=== PATIENT | male | born 1940 | race Caucasian/White ===

== ENCOUNTER → 2019-12-26 09:51 | Outpatient (BNVA) | payer MEDICARE, SELFPAY | PROVIDERS: PCP Family Medicine; Referring Provider Family Medicine; Visit Provider Internal Medicine Cardiovascular Disease | DX: I49.3 Ventricular premature depolarization (principal); R06.02 Shortness of breath; R00.2 Palpitations; I10 Essential (primary) hypertension; Z79.899 Other long term (current) drug therapy | CPT/HCPCS: 93005; 99212 ==

== ENCOUNTER → 2020-01-17 09:01 | Outpatient (REF) | payer MEDICARE, SELFPAY ==
--- NOTE | 2020-01-17 09:00 | ECG_ITS ---
Hook-up date: 2020-01-17 10:49:00 Duration: 24:47:00 Test Indications: PVC Medications: 349532 QRS complexes 7920 Ventricular ectopics which represent 7 % of total QRS comp. 1457 Supraventricular ectopics which represent 1 % of total QRS comp. * Paced QRS complexs which represent % of total QRS comp. VENTRICULAR ECTOPY 7674 Isolated 97 Bigeminal Cycles 115 Couplets 5 Runs 16 Beats in Runs 4 Beats LONGEST at 100 BPM at 11:04:54 2020-01-17 3 Beats FASTEST at 141 BPM at 14:52:43 2020-01-17 SUPRAVENTRICULAR ECTOPY 1342 Isolated 33 Couplets 12 Runs 49 Beats in Runs 9 Beats LONGEST at 139 BPM at 06:23:56 2020-01-18 9 Beats FASTEST at 139 BPM at 06:23:56 2020-01-18 HEART RATES 63 MIN at 02:14:09 2020-01-18 71 AVG 120 MAX at 11:23:39 2020-01-17 LONGEST RR 1.2000 secs at 05:18:18 2020-01-18 S-T LEVELS Channel 1 - 128 mm at 10:49:00 2020-01-17 - 128 mm at 10:49:00 2020-01-17 Channel 2 - 128 mm at 10:49:00 2020-01-17 - 128 mm at 10:49:00 2020-01-17 Channel 3 - 128 mm at 03:00:81 -- - 128 mm at 03:00:81 Basic rhythm Normal sinus rhythm No long pause or profound bradycardia Frequent Premature ventricular complexes 3-4 beat salvos of NSVT with fastest at 141 bpm Frequent Premature atrial complexes No sustained Atrial fibrillation Patient reported event correlated with PAC Referred By: Leandro Zurita Overread By: LEANDRO ZURITA MD
--- NOTE | 2020-01-17 09:04 | CA_ITS ---
Transthoracic Echocardiogram Patient (Last, First, Middle): Sohan Friedman, Gender: Male Date of : 1940 Age: 79 Procedure Date: 01/17/2020 Procedure Type: Transthoracic Echocardiogram Location: OP Height: 172.72 cm Weight: 79.83 kg BSA: 1.94 m2 Heart Rate: bpm BP: 120 / 68 mmHg Oil Exploration Engineer: SAMANTHA Referring MD: Leandro Zurita MD Symptoms: I10 - Essential (primary) hypertension Study Quality: Good ECG Rhythm: Sinus Conclusions: - The left ventricular systolic function is normal. The visually estimated ejection fraction is between 65-70%. - No obvious valvular pathology seen on this study. Findings Left Ventricle Normal left ventricular cavity size. There is normal left ventricular wall thickness. The left ventricular systolic function is normal. The visually estimated ejection fraction is between 65-70%. There is no evidence of regional wall motion abnormalities. Diastolic function is normal for age. Right Ventricle Normal right ventricular cavity size and systolic function. Atria Both atria are normal in size. Aortic Valve There is a normal trileaflet aortic valve. There is no aortic valve stenosis. There is no aortic valve regurgitation. Mitral Valve The mitral valve appears normal. There is trace mitral valve regurgitation. There is no mitral valve stenosis. Pulmonic Valve The pulmonic valve was not well visualized. Tricuspid Valve Normal tricuspid valve structure. There is trace tricuspid valve regurgitation. The pulmonary artery systolic pressure is normal. Great Vessels The aortic annulus, sinuses of valsalva, and asc aorta are normal in size. Venous The inferior vena cava is normal in size and collapses greater than 50% with inspiration. Pericardium/Pleural There is no evidence of pericardial effusion. Prior Study Comparison No prior study available for comparison. Recommendations, Care & Conclusions No obvious valvular pathology seen on this study. Measurements 2D Linear Measurements IVSd: 1.26 0.6-0.9/0.6-1.0 cm LVIDd: 4.46 3.9-5.3/4.2-5.9 cm LVIDd Index: 2.30 2.4-3.2/2.2-3.1 cm/m2 LVIDs: 2.90 2.0-3.6 cm LVPWd: 0.98 0.7-1.1 cm Ao Root: 3.10 2.1-3.5 cm LA Diam: 4.10 2.7-3.8/3.0-4.0 cm LAIDs Index: 2.11 1.5-2.3 cm/m2 LV Mass: 220.39 67-162/88-224 g LV Mass Index: 113.60 43-95/49-115 g/m2 LVOT Diam: 2.30 3.0+(-)1.3 cm 2D Systolic Function EF 4C: 73.00 >55% EF 2C: 55.60 >55% EF BiP: 67.20 >55% Mitral Valve MV Pk E: 0.50 MV PK A: 0.76 MV Decel Time: 158.00 E/A: 0.70 E'Lateral: 9.28 E'Medial: 6.09 E/E' Med: 8.30 E/E' Lat: 5.40 PHT: 46.00 MVA PHT: 4.78 Decel Deuel: 3.18 Aortic Valve AoV Pk Dinesh: 1.22 AoV Pk Grad: 6.00 LVOT LVOT Pk Dinesh: 0.89 LVOT Mn Dinesh: 0.57 LVOT VTI: 0.20 LVOT Pk Grad: 3.00 LVOT Mn Grad: 2.00 LVOT Diam: 2.30 LVOT Area: 4.15 Diastolic Function MV Pk E: 0.50 MV Pk A: 0.76 E/A: 0.70 E'Medial: 6.09 E/E' Med: 8.30 E' Laterial: 9.28 E/E' Lat: 5.40 Tricuspid Valve TR Pk Dinesh: 2.43 TR Pk Grad: 24.00 RA Press: 3.00 RVSP: 27.00 Great Vessels Aorta Ao Root-2D: 3.10 2.0-3.7 cm Ao Asc: 3.30 2.1-3.4 cm Updated in Other Vendor System with Status of Final Jesus Elkins MD electronically signed on 01/19/2020 11:23:37 AM with status of Final
--- NOTE | 2020-01-17 10:57 | NM_ITS ---
Exercise Myocardial perfusion study Indication: Shortness of breath evaluate for myocardial ischemia Technique: The patient was brought in for an exercise perfusion study on 01/17/2020. Patient performed exercise as per Hernando protocol and was injected 30 mCi of sestamibi was given intravenously one target HR was achieved. Images were obtained using the SPECT gamma camera interlaced with the gating device. Images were obtained in supine position. Resting perfusion study was performed on 01/18/2020. Patient was administered 30 mCi of sestamibi intravenously at rest. Images were then obtained in supine position. Images obtained with and without CT attenuation. Total DLP 78 mGy-cm. Images were processed with the software and compared side to side in short axis, horizontal long axis and vertical long axis views. Findings: The stress perfusion study showed non attenuated images show mildly to moderately reduced uptake in the inferior wall of the LV myocardium. Remainder of the LV myocardium is normally perfused. Attenuation corrected images show normal uptake of radiotracer in all segments of LV myocardium.. The gated study shows normal LV systolic function with calculated LVEF of greater than 70 %. LV cavity is normal in size. The gated study shows normal systolic wall thickening and contraction of all segments. There is no transient ischemic dilation. Resting study shows non attenuated images show mildly reduced uptake in the inferior wall of the LV myocardium. Remainder of the LV myocardium normally attenuation corrected images show normal uptake of radiotracer myocardium except for small area of inferoapical wall.. Gating at rest reveals normal systolic wall motion with ejection fraction at 62%. The findings are consistent with normal myocardial perfusion. NM/NM cardiolite stress test Impression: 1. Normal myocardial perfusion 2. Gated LVEF is 62% 3. Transient ischemic dilatation not present Stress EKG is negative for ischemia
--- NOTE | 2020-01-17 11:05 | CA_ITS ---
Acquisition Time: 2020-01-17 10:17:58 Total Exercise Time: 00:05:02 Test Indications: Dyspnea Medications: LISINOPRIL DILTIAZEM CETRIZINE Protocol: ROSANA Max HR: 131 BPM 91% of Pred: 143 BPM Max BP: 200/056 mmHG Max Work Load: 7.0 METS Exercise stress nuclear using Rosana protocol, total of 5 min 2 sec. Tolerated well, denies any anginal sx. EKG with PVC's and PAC's. No ischemic changes seen during exercise or in rcovery. Nuclear images to follow. Hypertensive response to exercise. Pt took his cardizem now. Test reviewed with Dr. Elkins. Referred By: Leandro Zurita Overread By: Eleanor Powers
== END ==
LOC: HO.CARD 09:01
PROVIDERS: PCP Family Medicine; Visit Provider Internal Medicine Cardiovascular Disease
DX: R06.02 Shortness of breath (principal); I49.3 Ventricular premature depolarization; I10 Essential (primary) hypertension; G47.33 Obstructive sleep apnea (adult) (pediatric)
CPT/HCPCS: 78452; 93017; 93225; 93226; 93306; A9500

== ENCOUNTER → 2020-02-06 09:49 | Outpatient (BNVA) | payer MEDICARE, SELFPAY | PROVIDERS: PCP Family Medicine; Visit Provider Internal Medicine Cardiovascular Disease | DX: I49.3 Ventricular premature depolarization (principal); R00.2 Palpitations; I10 Essential (primary) hypertension; Z79.899 Other long term (current) drug therapy | CPT/HCPCS: 99212 ==

== ENCOUNTER 2020-03-05 09:20 | Outpatient (REF) | payer MEDICARE, SELFPAY ==
[2020-03-05 10:42] LABS: Prostate Specific Antigen < 0.05 ng/mL (<0.05-4.0)
--- NOTE | 2020-03-06 07:34 | ECG_ITS ---
Hook-up date: 2020-03-05 10:58:00 Duration: 47:24:00 Test Indications: VENT. PREMATURE DEPOLARIZATION Medications: 86421 QRS complexes 195 Ventricular ectopics which represent 2 % of total QRS comp. 433 Supraventricular ectopics which represent <1 % of total QRS comp. * Paced QRS complexs which represent % of total QRS comp. VENTRICULAR ECTOPY 1931 Isolated 48 Bigeminal Cycles 11 Couplets 0 Runs 0 Beats in Runs * Beats LONGEST at * BPM at :: -- * Beats FASTEST at * BPM at :: -- SUPRAVENTRICULAR ECTOPY 291 Isolated 46 Couplets 14 Runs 50 Beats in Runs 6 Beats LONGEST at 107 BPM at 05:14:03 2020-03-06 3 Beats FASTEST at 126 BPM at 05:47:39 2020-03-06 HEART RATES 50 MIN at 13:51:26 2020-03-05 58 AVG 104 MAX at 08:39:20 2020-03-06 LONGEST RR 1.2640 secs at 14:20:00 2020-03-05 S-T LEVELS Channel 1 - 128 mm at 10:58:00 2020-03-05 - 128 mm at 10:58:00 2020-03-05 Channel 2 - 128 mm at 10:58:00 2020-03-05 - 128 mm at 10:58:00 2020-03-05 Channel 3 - 128 mm at 03:01:71 -- - 128 mm at 03:01:71 Underlying rhythm is sinus; Average ventricular rate 58/min; range 50-104/min; Occasional ventricular ectopy (3%); mostly isolated; occasional couplets, bigeminal cycles; no runs; 2 different morphology; Rare supraventricular ectopy (<1%); few brief runs; Patient did not report any symptoms in the diary Referred By: Leandro Zurita Overread By: JESSE ZEPEDA
== END 2020-03-05 09:21 | disposition home or self-care (01) ==
LOC: HO.LAB 09:20
PROVIDERS: PCP Family Medicine; Visit Provider Urology
DX: C61 Malignant neoplasm of prostate (principal); Z12.5 Encounter for screening for malignant neoplasm of prostate; I49.3 Ventricular premature depolarization
CPT/HCPCS: 36415; 84153; 93226

== ENCOUNTER → 2020-03-19 09:30 | Outpatient (BNVA) | payer MEDICARE, SELFPAY | PROVIDERS: PCP Family Medicine; Referring Provider Family Medicine; Visit Provider Urology | DX: C61 Malignant neoplasm of prostate (principal) | CPT/HCPCS: Q3014 ==

== ENCOUNTER 2020-03-20 14:28 | Outpatient (REF) | payer SELFPAY ==
[2020-03-20 16:55] LABS: Cholesterol 157 mg/dL
== END 2020-03-20 14:29 | disposition home or self-care (01) ==
LOC: HO.LNC 14:28
PROVIDERS: Visit Provider Pathology Anatomic Pathology & Clinical Pathology
DX: Z13.89 Encounter for screening for other disorder (principal)
CPT/HCPCS: 36415; 82465

== ENCOUNTER → 2020-05-06 10:03 | Outpatient (BNVA) | payer MEDICARE, SELFPAY | PROVIDERS: PCP Family Medicine; Visit Provider Internal Medicine Cardiovascular Disease | DX: I49.3 Ventricular premature depolarization (principal); I10 Essential (primary) hypertension | CPT/HCPCS: 99212 ==

== ENCOUNTER 2021-03-04 13:41 | Outpatient (REF) | payer MEDICARE, SELFPAY ==
[2021-03-04 17:04] LABS: Prostate Specific Antigen < 0.05 ng/mL (<0.05-4.0)
== END 2021-03-04 13:42 | disposition home or self-care (01) ==
LOC: HO.HMGCLDS 13:41
PROVIDERS: PCP Family Medicine; Visit Provider Urology
DX: Z12.5 Encounter for screening for malignant neoplasm of prostate (principal); C61 Malignant neoplasm of prostate; N13.8 Other obstructive and reflux uropathy; N40.1 Benign prostatic hyperplasia with lower urinary tract symptoms
CPT/HCPCS: 36415; 84153

== ENCOUNTER → 2021-03-20 08:58 | Outpatient (BNVA) | payer MEDICARE, SELFPAY | PROVIDERS: PCP Family Medicine; Visit Provider Urology | DX: C61 Malignant neoplasm of prostate (principal) | CPT/HCPCS: Q3014 ==

== ENCOUNTER → 2021-05-12 12:20 | Outpatient (BNVA) | payer MEDICARE, SELFPAY | PROVIDERS: PCP Family Medicine; Referring Provider Family Medicine; Visit Provider Internal Medicine Cardiovascular Disease | DX: I49.3 Ventricular premature depolarization (principal); I10 Essential (primary) hypertension | CPT/HCPCS: 93005; 99212 ==

== ENCOUNTER → 2021-11-12 13:51 | Outpatient (BNVA) | payer MEDICARE, SELFPAY | PROVIDERS: PCP Family Medicine; Referring Provider Family Medicine; Visit Provider Internal Medicine Cardiovascular Disease | DX: I10 Essential (primary) hypertension (principal); I49.3 Ventricular premature depolarization; Z79.899 Other long term (current) drug therapy | CPT/HCPCS: 99212 ==

== ENCOUNTER 2022-03-13 10:11 | Outpatient (REF) | payer MEDICARE, SELFPAY ==
[2022-03-13 12:14] LABS: Prostate Specific Antigen < 0.10 ng/mL (<0.05-4.0)
== END 2022-03-13 10:12 | disposition home or self-care (01) ==
LOC: HO.HMGCLDS 10:11
PROVIDERS: PCP Family Medicine; Visit Provider Urology
DX: Z12.5 Encounter for screening for malignant neoplasm of prostate (principal); C61 Malignant neoplasm of prostate
CPT/HCPCS: 36415; 84153

== ENCOUNTER → 2022-03-20 09:25 | Outpatient (BNVA) | payer MEDICARE, SELFPAY | PROVIDERS: PCP Family Medicine; Visit Provider Urology | DX: C61 Malignant neoplasm of prostate (principal); I49.3 Ventricular premature depolarization; I10 Essential (primary) hypertension; G47.33 Obstructive sleep apnea (adult) (pediatric); Z90.79 Acquired absence of other genital organ(s) | CPT/HCPCS: 99212 ==

== ENCOUNTER → 2022-05-18 12:58 | Outpatient (BNVA) | payer MEDICARE, SELFPAY | PROVIDERS: PCP Family Medicine; Visit Provider Internal Medicine Cardiovascular Disease | DX: I49.3 Ventricular premature depolarization (principal); I10 Essential (primary) hypertension | CPT/HCPCS: 93005; 99212 ==

== ENCOUNTER 2023-04-09 14:43 | Outpatient (REF) | payer MEDICARE, SELFPAY ==
[2023-04-09 17:05] LABS: Prostate Specific Antigen < 0.10 ng/mL (<0.05-4.0)
== END 2023-04-09 14:44 | disposition home or self-care (01) ==
LOC: HO.HMGCLDS 14:43
PROVIDERS: PCP Family Medicine; Visit Provider Urology
DX: Z12.5 Encounter for screening for malignant neoplasm of prostate (principal); C61 Malignant neoplasm of prostate
CPT/HCPCS: 36415; 84153

== ENCOUNTER 2023-04-21 10:04 | Outpatient (AMB) | payer MEDICARE, SELFPAY ==
--- NOTE | 2023-04-21 10:13 | A.OFFVIS_ITS ---
Intake Intake Visit Reasons: 1Y PSA(set)Confirmed Intake Note: Patient presents today for a follow-up on PSA Meds- None Allergies to Antibiotic- No Known Allergies Blood Thinner- None Inspector Radar And Electronics Required: No Accompanied by: Self / Same As Patient Allergies atenolol [ATENOLOL] Allergy (Intermediate, Verified 04/21/23 10:20) OUT OF BODY EXPERIENCE feathers Allergy (Unknown, Uncoded 04/21/23 10:20) Unknown HPI HPI Comments History of Present Illness Details Sohan ARRIOLA is a very pleasant male. He is a patient of Dr Mcnair. He is seen for the following urologic conditions. - prostate cancer Doing well Maintaining fitness No recurrence Encouraged Kegel exercises Discussed change in labs status for PSA management - reporting of lab work depends on metho dology used Recently finished book regarding development of COVID vaccine Prostate cancer: Favorable intermediate 2009 initial therapy robotic prostatectomy Prostate cancer was diagnosed [address] Wade. Diagnosis was reached by needle biopsy, for elevated PSA. The Eliud grade is 3+4 = 7, at surgery. TNM Classification of Malignant Tumours (TNM) 2010 T2b, N0, M0. The D'Mary Kate (NCCN) risk category is Intermediate Risk (PSA 10-20, Gl 7, T2). Initial therapy included Primary treatment, Prostatectomy (RRP/Robotic) Additional treatment, Observation Recent labs included a PSA (prostate-specific antigen) Nondetectable PSA since surgery 09/23 < 0.1, 09/24 < 0.1, 02/25 < 0.1, 02/26 < 0.1, 02/27 < 0.1 - 02/28 <0.1, 03/01 <0.1, 03/02 <0.1, 05/01 <0.1 Associated conditions erectile dysfunction Yes Erectile MARY Score 15 hematuria No hot flashes No incontinence Yes Stress incontinence occasional Therapeutic plan: Continue with surveillance [facility] Medical History Prostate cancer PERI (obstructive sleep apnea) PVCs (premature ventricular contractions) HTN (hypertension) Surgical History Hx of toe surgery Hx of vasectomy Hx of prostatectomy Hx of shoulder surgery Family History Father CVD (cardiovascular disease) Mother No problems noted. Review of Systems Const Denies chills and Denies fever(s) Card Reports no additional complaints and Denies syncope Resp Denies cough GI Denies abdominal pain and Denies heartburn Reports as per HPI and Denies change in libido Neuro Denies syncope Psych Denies change in libido Endo Denies change in libido Physical Exam Const General: cooperative, healthy appearing, comfortable and no acute distress Orientation/consciousness: patient oriented x3 HEENT Face and sinus: Yes normal facial exam Mouth: moist mucous membranes Neck Neck: Yes normal visual inspection, Yes full ROM and Yes trachea midline Chest Chest palpation & inspection: normal inspection of the chest Resp Effort & Inspection: normal respiratory effort, able to speak in complete sentences and no respiratory distress GI Inspection: Yes normal to inspection Back/Spine/Pelvis Cervical Spine: normal cervical lordosis Thoracic/Lumbar Spine: thoracic and lumbar spine normal to inspection Skin General skin exam: no rashes or lesions noted Neuro General: patient oriented x3, gait normal, tone normal and moves all extremities Extrem General: Yes normal to inspection and Yes capillary refill normal Assessment & Plan Assessment & Plan (1) Prostate cancer: Code(s): C61 - Malignant neoplasm of prostate Plan Twelve month follow-up PSA Orders: Orders Prostate Specific Antigen 364 Days C61 - Malignant neoplasm of prostate Patient Instructions: Imaging studies, laboratory and physical exam results were discussed and reviewed in detail. No major barriers to patient understanding were identified. An opportunity to ask questions regarding the treatment plan was provided. All questions were answered. The patient expressed understanding and agreement with the above treatment plan. The patient is aware they should contact our office by phone for worsening of their current condition or the appearance of new urologic symptoms. Compliance is encouraged with any medications and followup testing that is ordered. It is a privilege to participate in the urologic care of your patient. If you have any questions or concerns regarding treatment for the above conditions, or other urologic issues, please do not hesitate to contact me. The office telephone contact is [phone]. This note is constructed using voice recognition software. While every effort h as been made to ensure accuracy freight rate clerk errors may have been included. Yours sincerely, Dr Umberto Wade MD, [facility] - Urology Providers of Expert, Compassionate Care for the Genitourinary System Coding Level of Care Code Est Pt Level 4 (57364) Diagnoses Prostate cancer C61
== END 2023-04-21 11:08 | disposition home or self-care (01) ==
PROVIDERS: Visit Provider Urology
DX: C61 Malignant neoplasm of prostate (principal)
CPT/HCPCS: 99213

== ENCOUNTER → 2023-04-21 10:04 | Outpatient (BNVA) | payer MEDICARE, SELFPAY | PROVIDERS: Visit Provider Urology | DX: Z85.46 Personal history of malignant neoplasm of prostate (principal) | CPT/HCPCS: 99212 ==

== ENCOUNTER 2023-05-25 12:36 | Outpatient (AMB) | payer MEDICARE, SELFPAY ==
--- NOTE | 2023-05-25 12:45 | MHC.OFFVIS ---
Intake Vital Signs 05/25/23 12:46 Height 5 ft 10 in Weight 187 lb 6.287 oz BMI 26.9 BP 116/62 Blood Pressure Location Lt brachial Position Sitting Pulse 61 Intake Visit Reasons: 1 yr fu Intake Note: 1 year follow-up with ekg feeling ok ? cough at night and lisinopril Software Engineer Sales Required: No Allergies atenolol [ATENOLOL] Allergy (Intermediate, Verified 04/21/23 10:20) OUT OF BODY EXPERIENCE feathers Allergy (Unknown, Uncoded 04/21/23 10:20) Unknown Medication List - Last Reconciled 05/25/23 by Leandro Zurita MD azelastine 2 sprays intranasal DAILY diltiazem HCl CD 300 mg PO DAILY escitalopram oxalate 5 mg PO DAILY fexofenadine 180 mg PO DAILY lisinopril 40 mg PO DAILY metoprolol succinate ER 50 mg PO DAILY multivitamin 1 tab PO DAILY HPI HPI Comments History of Present Illness Details Sohan comes for follow-up. He has been doing well from cardiac perspective. He says symptoms of palpitation have dissipated he does not feel them anymore. He remains very active and has no exertional symptoms of chest pain or shortness of breath. Denies any orthopnea, PND, leg edema. No lightheadedness, syncope. He said he does have a little itchy throat at nighttime when he goes to sleep which resolves after he takes a cough drop. Reviewed last year's lab and his triglycerides were greater than 500. No current therapy to modify his lipids. [facility] Medical History Prostate cancer PERI (obstructive sleep apnea) PVCs (premature ventricular contractions) HTN (hypertension) Surgical History Hx of toe surgery Hx of vasectomy Hx of prostatectomy Hx of shoulder surgery Family History Father CVD (cardiovascular disease) Mother No problems noted. Review of Systems Const Denies chills, Denies fatigue, Denies fever(s), Denies frequent falls, Denies weakness, Denies weight gain and Denies weight loss ENT Denies dizziness Card Denies chest pain, Denies leg edema, Denies lightheadedness, Denies palpitations, Denies dyspnea, Denies dyspnea on exertion, Denies orthopnea and Denies other (loss of consciousness) Resp Denies cough, Denies dyspnea and Denies dyspnea on exertion GI Denies hematochezia and Denies change in stool character Musc Denies abnormal gait, Denies muscle weakness, Denies numbness, Denies radiating pain into limb and Denies tingling Neuro Denies abnormal gait, Denies dizziness, Denies frequent falls, Denies numbness, Denies tingling and Denies weakness Endo Denies fatigue and Denies palpitations Physical Exam Vital Signs: Last Vital Signs Pulse 61 05/25/23 12:46 BP 116/62 05/25/23 12:46 BMI result Body Mass Index 26.9 Const General: cooperative, comfortable, no acute distress, alert and awake Nutritional Appearance: average body habitus Orientation/consciousness: patient oriented x3 Limitations: no limitations Neck Neck: Yes trachea midline, Yes supple and Yes no JVD Resp Effort & Inspection: normal respiratory effort Auscultation: clear to auscultation bilaterally Cardio Jugular venous distension: no JVD Palpation: normal PMI Rate: regular rate Rhythm: regular rhythm Heart sounds: S1 normal heart sound present and S2 normal heart sound present GI Auscultation: normal bowel sounds Skin General skin exam: no rashes or lesions noted Neuro General: patient oriented x3 and no focal motor deficits Extrem General: Yes no clubbing, cyanosis or edema Psych Appearance: grossly normal Office Procedures EKG Details: EKG shows normal sinus rhythm with PVCs with left axis deviation [id number], Complete Assessment & Plan Assessment & Plan (1) PVCs (premature ventricular contractions): Code(s): I49.3 - Ventricular premature depolarization Plan: Frequent PVCs in the past with much improved symptoms of dual therapy with metoprolol as well as diltiazem. Continue the same. Avoidance of stimulants was discussed. Stress mitigation strategies were discussed encouraged to continue to participate in physical activity as tolerated. (2) HTN (hypertension): Code(s): I10 - Essential (primary) hypertension Plan: Hypertension which is currently well optimized on triple therapy. Continue the same. Continue treatment of sleep apnea necessary. Target goal blood pressure less than 130/84. Low-salt diet was discussed advised to monitor blood pressure at home maintain a log. Continue maintain heart healthy lifestyle. Noted to have significant hypertriglyceridemia. He has follow-up lipid panel in near future. If his triglycerides are still significantly elevated should be treated either with Lovaza or Vascepa. Follow up in the clinic in 1 year's time after an echocardiogram. Thank you for allowing me to partake in his care Coding Level of Care Code Est Pt Level 4 (92624) Diagnoses PVCs (premature ventricular contractions) I49.3 HTN (hypertension) I10 CPT Codes EKG - CPT: 67522-[id number], Complete ([id number])
[2023-05-25 12:46] VITALS: BP 116/62; PULSE 61; BMI 26.9
== END 2023-05-25 13:09 | disposition home or self-care (01) ==
PROVIDERS: Visit Provider Internal Medicine Cardiovascular Disease
DX: I49.3 Ventricular premature depolarization (principal); I10 Essential (primary) hypertension
CPT/HCPCS: 93010; 99214

== ENCOUNTER → 2023-05-25 12:36 | Outpatient (BNVA) | payer MEDICARE, SELFPAY | PROVIDERS: Visit Provider Internal Medicine Cardiovascular Disease | DX: I49.3 Ventricular premature depolarization (principal); I10 Essential (primary) hypertension | CPT/HCPCS: 93005; 99212 ==

== ENCOUNTER → 2024-05-10 08:40 | Outpatient (REF) | payer MEDICARE, SELFPAY ==
--- NOTE | 2024-05-10 08:56 | CA_ITS ---
Transthoracic Echocardiogram Patient (Last, First, Middle): Sohan Friedman, Gender: Male Date of : 1940 Age: 84 Procedure Date: 05/10/2024 Procedure Type: Transthoracic Echocardiogram Location: OP Height: 177.8 cm Weight: 82.56 kg BSA: 2.01 m2 Heart Rate: bpm BP: 120 / 60 mmHg Push Bench Operator Helper: STUART Referring MD: Leandro Zurita MD Symptoms: I49.3 - Ventricular premature depolarization Study Quality: Adequate ECG Rhythm: Sinus Conclusions: - The left ventricular systolic function is normal. The calculated ejection fraction is 57% by biplane method. - There is moderately increased left ventricular wall thickness (more prominent in septum). - No obvious valvular pathology seen on this study. Findings Left Ventricle Normal left ventricular cavity size. There is moderately increased left ventricular wall thickness. The left ventricular systolic function is normal. The calculated ejection fraction is 57% by biplane method. There is no evidence of regional wall motion abnormalities. Diastolic function is normal for age. Right Ventricle Normal right ventricular cavity size and systolic function. Atria Both atria are normal in size. Aortic Valve There is a normal trileaflet aortic valve. There is no aortic valve stenosis. There is no aortic valve regurgitation. Mitral Valve The mitral valve appears normal. There is no mitral valve regurgitation. There is no mitral valve stenosis. Pulmonic Valve The pulmonic valve is likely normal. Tricuspid Valve There is mild tricuspid valve regurgitation. There is no evidence of pulmonary hypertension. Great Vessels The asc aorta is normal in size. Venous The inferior vena cava is normal in size and collapses less than 50% with inspiration. Pericardium/Pleural There is no evidence of pericardial effusion. Prior Study Comparison Changes noted compared to prior study dated: 01/17/2020. LVH noted. Recommendations, Care & Conclusions No obvious valvular pathology seen on this study. Measurements 2D Linear Measurements IVSd: 1.52 0.6-0.9/0.6-1.0 cm LVIDd: 4.80 3.9-5.3/4.2-5.9 cm LVIDd Index: 2.39 2.4-3.2/2.2-3.1 cm/m2 LVIDs: 2.64 2.0-3.6 cm LVPWd: 1.36 0.7-1.1 cm Ao Root: 3.40 2.1-3.5 cm LA Diam: 5.40 2.7-3.8/3.0-4.0 cm LAIDs Index: 2.69 1.5-2.3 cm/m2 LV Mass: 356.09 67-162/88-224 g LV Mass Index: 177.16 43-95/49-115 g/m2 LVOT Diam: 2.30 3.0+(-)1.3 cm 2D Systolic Function EF 4C: 55.60 >55% EF 2C: 59.80 >55% EF BiP: 57.40 >55% Mitral Valve MV Pk E: 0.48 MV PK A: 0.89 MV Decel Time: 352.00 E/A: 0.50 E'Lateral: 8.16 E'Medial: 5.77 E/E' Med: 8.40 E/E' Lat: 5.90 PHT: 103.00 MVA PHT: 2.14 Decel Cowley: 1.38 Aortic Valve AoV Pk Dinesh: 1.10 AoV Mn Dinesh: 0.70 AoV VTI: 0.25 AoV Pk Grad: 5.00 Aov Mn Grad: 2.00 RICHARD Cont.VTI: 3.55 LVOT LVOT Pk Dinesh: 0.85 LVOT Mn Dinesh: 0.51 LVOT VTI: 0.21 LVOT Pk Grad: 3.00 LVOT Mn Grad: 1.00 LVOT Diam: 2.30 LVOT Area: 4.15 Diastolic Function MV Pk E: 0.48 MV Pk A: 0.89 E/A: 0.50 E'Medial: 5.77 E/E' Med: 8.40 E' Laterial: 8.16 E/E' Lat: 5.90 Right Ventricle TAPSE (mm): 27.00 TVS' Dinesh: 15.00 Tricuspid Valve TR Pk Dinesh: 2.60 TR Pk Grad: 27.00 RA Press: 3.00 RVSP: 30.00 Great Vessels Aorta Ao Root-2D: 3.40 2.0-3.7 cm Ao Asc: 3.50 2.1-3.4 cm Pulmonary Valve PV Pk Dinesh: 0.86 Peak PV Grad: 3.00 Updated in Other Vendor System with Status of Final Jesus Elkins MD electronically signed on 05/12/2024 2:40:58 PM with status of Final
[2024-05-10 10:18] LABS: Prostate Specific Antigen < 0.10 ng/mL (<0.05-4.0)
== END ==
LOC: HO.CARD 08:40
PROVIDERS: Absent Provider Urology; PCP Family Medicine; Visit Provider Internal Medicine Cardiovascular Disease
DX: I49.3 Ventricular premature depolarization (principal); C61 Malignant neoplasm of prostate; Z12.5 Encounter for screening for malignant neoplasm of prostate
CPT/HCPCS: 36415; 84153; 93306

== ENCOUNTER → 2024-05-10 08:56 | Outpatient (BNV) | payer MEDICARE, SELFPAY | PROVIDERS: Absent Provider Urology; PCP Family Medicine; Visit Provider Internal Medicine | DX: I36.1 Nonrheumatic tricuspid (valve) insufficiency (principal) | CPT/HCPCS: 93306 ==

== ENCOUNTER 2024-05-16 12:22 | Outpatient (AMB) | payer MEDICARE, SELFPAY ==
--- NOTE | 2024-05-16 12:30 | MHC.OFFVIS ---
Vital Signs 05/16/24 12:31 Height 5 ft 10 in Weight 189 lb 9.561 oz BMI 27.2 BP 122/74 Blood Pressure Location Lt brachial Position Sitting Pulse 62 Intake Visit Reasons: 1 yr s/p echo Intake Note: 1 year follow-up with after echo feeling good Data Integrity Consultant Required: No Allergies atenolol [ATENOLOL] Allergy (Intermediate, Verified 04/21/23 10:20) OUT OF BODY EXPERIENCE feathers Allergy (Unknown, Uncoded 04/21/23 10:20) Unknown Medication List - Last Reconciled 05/16/24 by Leandro Zurita MD azelastine 2 sprays intranasal DAILY diltiazem HCl CD 300 mg PO DAILY escitalopram oxalate 5 mg PO DAILY fexofenadine 180 mg PO DAILY metoprolol succinate ER 50 mg PO DAILY multivitamin 1 tab PO DAILY valsartan 320 mg PO DAILY HPI Comments Details: Sohan comes for follow-up. He has been doing very well from cardiac perspective. Denies any cardiac symptoms. Denies any worsening shortness of breath, orthopnea. Denies any exertional chest pain. He said he has not had any on medications and has had no prolonged irregular heartbeat. Recent echocardiogram however shows increased wall thickness which is unusual. He has had well controlled blood pressure for some time. He was also treating sleep apnea. [facility] Medical History Prostate cancer PERI (obstructive sleep apnea) PVCs (premature ventricular contractions) HTN (hypertension) Surgical History Hx of toe surgery Hx of vasectomy Hx of prostatectomy Hx of shoulder surgery Family History Father CVD (cardiovascular disease) Mother No problems noted. Review of Systems Const Denies chills, Denies fatigue, Denies fever(s), Denies frequent falls, Denies weakness, Denies weight gain and Denies weight loss ENT Denies dizziness Card Denies chest pain, Denies leg edema, Denies lightheadedness, Denies palpitations, Denies dyspnea, Denies dyspnea on exertion, Denies orthopnea and Denies other (loss of consciousness) Resp Denies cough, Denies dyspnea and Denies dyspnea on exertion GI Denies hematochezia and Denies change in stool character Musc Denies abnormal gait, Denies muscle weakness, Denies numbness, Denies radiating pain into limb and Denies tingling Neuro Denies abnormal gait, Denies dizziness, Denies frequent falls, Denies numbness, Denies tingling and Denies weakness Endo Denies fatigue and Denies palpitations Physical Exam Vital Signs: Last Vital Signs Pulse 62 05/16/24 12:31 BP 122/74 05/16/24 12:31 BMI result Body Mass Index 27.2 Const General: cooperative, comfortable, no acute distress, alert and awake Nutritional Appearance: average body habitus Orientation/consciousness: patient oriented x3 Limitations: no limitations Neck Neck: Yes trachea midline, Yes supple and Yes no JVD Resp Effort & Inspection: normal respiratory effort Auscultation: clear to auscultation bilaterally Cardio Jugular venous distension: no JVD Palpation: normal PMI Rate: regular rate Rhythm: regular rhythm Heart sounds: S1 normal heart sound present and S2 normal heart sound present GI Auscultation: normal bowel sounds Skin General skin exam: no rashes or lesions noted Neuro General: patient oriented x3 and no focal motor deficits Extrem General: Yes no clubbing, cyanosis or edema Psych Appearance: grossly normal Office Procedures EKG Details: EKG shows normal sinus rhythm with 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 [id number], Complete Assessment & Plan Assessment & Plan (1) LVH (left ventricular hypertrophy): Code(s): I51.7 - Cardiomegaly Category: Medical Plan: Patient was recent echocardiogram suggestive of increased wall thickness of unclear etiology. Most common etiologies usually hypertension although his blood pressures been well controlled. Would suggest a cardiac MRI to evaluate for infiltrative disorder such as amyloidosis , sarcoidosis etc.. Hypertrophic cardiomyopathy is less likely. He was no current symptoms related to it. Potential development of heart failure syndrome was discussed. Continue aggressive blood pressure control. (2) HTN (hypertension): Code(s): I10 - Essential (primary) hypertension Category: Medical Plan: Hypertension which is currently well optimized advised to monitor blood pressure at home maintain a log. Goal blood pressure less than 130/84. He says blood pressure is generally been well controlled. At this point time will continue current therapy which has helped him significantly. He was encouraged to maintain activity level as tolerated. (3) PVCs (premature ventricular contractions): Code(s): I49.3 - Ventricular premature depolarization Category: Medical Plan: PVCs which are currently suppressed and without any significant symptoms at this point time. Will suggest him to continue current therapy. Avoidance of stimulants was discussed. Stress mitigation strategies were discussed Will follow up in the clinic in 1 year's time, sooner p.r.n.. Thank you for allowing me to partake in his care Orders: Orders MR cardiac morph fnct w/wo con 1 Week I51.7 - Cardiomegaly Coding Level of Care Code Est Pt Level 4 (69027) Complex EM visit Add On G2211 Diagnoses LVH (left ventricular hypertrophy) I51.7 HTN (hypertension) I10 PVCs (premature ventricular contractions) I49.3 CPT Codes EKG - CPT: 30243-[id number], Complete ([id number])
[2024-05-16 12:31] VITALS: BP 122/74; PULSE 62; BMI 27.2
== END 2024-05-16 13:15 | disposition home or self-care (01) ==
LOC: HO.HCS 12:23
PROVIDERS: PCP Family Medicine; Visit Provider Internal Medicine Cardiovascular Disease
DX: I51.7 Cardiomegaly (principal); I10 Essential (primary) hypertension; I49.3 Ventricular premature depolarization
CPT/HCPCS: 93010; 99214; G2211

== ENCOUNTER → 2024-05-16 12:22 | Outpatient (BNVA) | payer MEDICARE, SELFPAY | PROVIDERS: PCP Family Medicine; Visit Provider Internal Medicine Cardiovascular Disease | DX: I51.7 Cardiomegaly (principal); I10 Essential (primary) hypertension; I49.3 Ventricular premature depolarization; I45.2 Bifascicular block; R94.31 Abnormal electrocardiogram [ECG] [EKG]; C61 Malignant neoplasm of prostate | CPT/HCPCS: 93005; 99212 ==

== ENCOUNTER 2024-05-16 14:21 | Outpatient (AMB) | payer MEDICARE, SELFPAY ==
--- NOTE | 2024-05-16 14:54 | A.OFFVIS_ITS ---
Intake Visit Reasons: 1y/PSA(psa?) Intake Note: Patient presents today for a 1Y follow-up on PSA Meds- None Allergies to Antibiotic- No Known Allergies Blood Thinner- None Network Engineer Required: No Accompanied by: Self / Same As Patient Allergies atenolol [ATENOLOL] Allergy (Intermediate, Verified 05/16/24 14:55) OUT OF BODY EXPERIENCE feathers Allergy (Unknown, Uncoded 05/16/24 14:55) Unknown [facility] Medical History Prostate cancer PERI (obstructive sleep apnea) PVCs (premature ventricular contractions) HTN (hypertension) Surgical History Hx of toe surgery Hx of vasectomy Hx of prostatectomy Hx of shoulder surgery Family History Father CVD (cardiovascular disease) Mother No problems noted. Coding
--- NOTE | 2024-05-16 15:04 | A.OFFVIS_ITS ---
Intake Visit Reasons: 1y/PSA(psa?) Intake Note: Patient presents today for a 1Y follow-up on PSA Meds- None Allergies to Antibiotic- No Known Allergies Blood Thinner- None Case Packer And Sealer Required: No Accompanied by: Self / Same As Patient Allergies atenolol [ATENOLOL] Allergy (Intermediate, Verified 05/16/24 15:20) OUT OF BODY EXPERIENCE feathers Allergy (Unknown, Uncoded 05/16/24 15:20) Unknown HPI Comments Details: Sohan ARRIOLA is a very pleasant male. He is a patient of Dr Mcnair. He is seen for the following urologic conditions. - prostate cancer Yearly follow-up PSA not detectable Recently finished book regarding development of COVID vaccine Prostate cancer: Favorable intermediate 2009 initial therapy robotic prostatectomy Prostate cancer was diagnosed [address] Wade. Diagnosis was reached by needle biopsy, for elevated PSA. The Eliud grade is 3+4 = 7, at surgery. TNM Classification of Malignant Tumours (TNM) 2010 T2b, N0, M0. The [place] (NCCN) risk category is Intermediate Risk (PSA 10-20, Gl 7, T2). Initial therapy included Primary treatment, Prostatectomy (RRP/Robotic) Additional treatment, Observation Recent labs included a PSA (prostate-specific antigen) Nondetectable PSA since surgery 09/23 < 0.1, 09/24 < 0.1, 02/25 < 0.1, 02/26 < 0.1, 02/27 < 0.1 - 02/28 <0.1, 03/01 <0.1, 03/02 <0.1, 05/01 <0.1 Associated conditions erectile dysfunction Yes Erectile MARY Score 15 hematuria No hot flashes No incontinence Yes Stress incontinence occasional Therapeutic plan: Continue with surveillance [facility] Medical History Prostate cancer PERI (obstructive sleep apnea) PVCs (premature ventricular contractions) HTN (hypertension) Surgical History Hx of toe surgery Hx of vasectomy Hx of prostatectomy Hx of shoulder surgery Family History Father CVD (cardiovascular disease) Mother No problems noted. Review of Systems Const Denies chills and Denies fever(s) Card Reports no additional complaints and Denies syncope Resp Denies cough GI Denies abdominal pain and Denies heartburn Reports as per HPI and Denies change in libido Neuro Denies syncope Psych Denies change in libido Endo Denies change in libido Physical Exam Const General: cooperative, healthy appearing, comfortable and no acute distress Orientation/consciousness: patient oriented x3 HEENT Face and sinus: Yes normal facial exam Mouth: moist mucous membranes Neck Neck: Yes normal visual inspection, Yes full ROM and Yes trachea midline Chest Chest palpation & inspection: normal inspection of the chest Resp Effort & Inspection: normal respiratory effort, able to speak in complete sentences and no respiratory distress GI Inspection: Yes normal to inspection Back/Spine/Pelvis Cervical Spine: normal cervical lordosis Thoracic/Lumbar Spine: thoracic and lumbar spine normal to inspection Skin General skin exam: no rashes or lesions noted Neuro General: patient oriented x3, gait normal, tone normal and moves all extremities Extrem General: Yes normal to inspection and Yes capillary refill normal Assessment & Plan Assessment & Plan (1) Prostate cancer: Code(s): C61 - Malignant neoplasm of prostate Category: Medical Plan P.r.n. Patient Instructions: This note is constructed using voice recognition software. While every effort has been made to ensure accuracy electronic sales and service technician errors may have been included. Imaging studies, laboratory and physical exam results were discussed and reviewed in detail. No major barriers to patient understanding were identified. An opportunity to ask questions regarding the treatment plan was provided. All questions were answered. The patient expressed understanding and agreement with the above treatment plan. The patient is aware they should contact our office by phone for worsening of their current condition or the appearance of new urologic symptoms. Compliance is encouraged with any medications and followup testing that is ordered. It is a privilege to participate in the urologic care of your patient. If you have any questions or concerns regarding treatment for the above conditions, or other urologic issues, please do not hesitate to contact me. The office telephone contact is [phone]. Sincerely, Dr Umberto Wade MD, JUA[facility] - Urology Compassionate Specialist Care for the Genitourinary System Coding Level of Care Code Est Pt Level 4 (00286) Complex EM visit Add On G2211 Diagnoses Prostate cancer C61
== END 2024-05-16 15:06 | disposition home or self-care (01) ==
LOC: HO.HUSH 14:22
PROVIDERS: PCP Family Medicine; Visit Provider Urology
DX: C61 Malignant neoplasm of prostate (principal)
CPT/HCPCS: 99214; G2211

== ENCOUNTER 2024-06-08 09:48 | Outpatient (REF) | payer MEDICARE, SELFPAY ==
--- OUTSIDE RECORDS SUMMARY | 2024-06-08 10:55 | XMS_ITS | Data Portability ---
Author Organization [facility], [facility] Address [address] [place] [address] Care Team Providers [employer] Name Role Phone GENESIS ALEXANDRE Primary Care Provider UMBERTO WADE Urologist TOBY SUN Orthopedic Surgeon TAYLOR ROGER OTHER Assessment Encounter Date Assessment Date Assessment LastModified by Organization Details LastModified Time 08/11/2023 08/11/2023 We completed your Medicare Wellness exam today. This was an opportunity to assess your overall well being including your ability to care for yourself, your mobility, memory, mental health, as well as your safety. With advancing age, it is important to assign someone in your life as your Health Care Proxy (HCP). This person should know what is important to you and what your wishes are for medical procedures if you cannot communicate your wishes yourself (severe illness, unconsciousness) . We discussed having a completed Health Care Proxy form today. In addition, today we started a conversation about your End of Life wishes. These conversations will continue over the years. Please consider reading the book, Being Mortal by Michelet Meraz to help frame future conversations. We discussed the purpose of a MOLST form (Medical Orders for Life Sustaining Treatment) and completed this form if appropriate per your wishes. Vision and Hearing are senses that are critically important as we age. When impaired, they can contribute to memory loss, falls, and make it harder to drive, talk to family and friends, and engage in the world. Please get your vision checked yearly and your hearing checked when you start to notice hearing loss. We discussed approaches to lowering your risk of heart disease and stroke . Your blood pressure is at goal. Your cholesterol is at goal. We discussed cancer screening you may need as well as vaccines to prevent infections. Colon Cancer : Your risk of colon cancer is average. Due for colorectal screening:not needed due to age. If you are not planning to have a colonoscopy please screen with stool cards yearly. Influenza Vaccine : Flu shot yearly. Tetanus Vaccine : Every 10 years. Due: 2029. The following vaccines are available from your pharmacy: Pneumonia Vaccine : PCV20: once after age 65. Shingles Vaccine : 2 shots after age 50. Covid Vaccine : Make sure you have received the most up to date covid vaccine. Your personal health goal for the year is: [email or web address] Not available 08/11/2023 11:54:42 Plan of Treatment Reminders Order Date Submit Date Provider Last Modified By Organization Details Last Modified Time Details Appointments Follow Up, 15 2024 03:30P M Genesis Alexandre MD Not available Not available Not available LAB Follow-Up 2024 04:20P M [facility] Lab Not available Not available Not available Wellness Visit 30 2024 11:00A M Genesis Alexandre MD Not available Not available Not available Lab uric acid, serum or plasma 2023 024 [facility], [address] [place] [address], [place], [address], 10/04/2023 14:22:14 Referral None recorded. Procedures None recorded. Surgeries None recorded. Imaging None recorded. Medication Orders None recorded. Patient TargetsNo targets recorded. Patient Instructions Encounter Date Encounter Id Patient Instructions Last Modified By Organization Details Last Modified Time 08/11/2023 [id number] high blood pressure: care instructions [email or web address] Not available 08/11/2023 12:14:31 learning about high blood pressure [email or web address] Not available 08/11/2023 12:14:31 05/17/2024 [id number] high blood pressure: care instructions [email or web address] Not available 05/17/2024 16:10:43 learning about high blood pressure [email or web address] Not available 05/17/2024 16:10:43 Reason for Referral None Reported. Results Created Date Observation Date Name Description Value Unit Range Abnormal Flag Note LastModifiedBy Organization Detail LastModifiedTime 10/04/19 24 10/04/2023 URIC ACID uric acid 5.1 mg/dL 3.5-7. 2 Not Available [address], [address], 10/04/2023 14:22:14 02/03/20 24 02/04/2024 BASIC METAB OLIC PANEL glucose 133 mg/dL 70-100 high Not Available [address], [address], 02/04/2024 11:24:51 02/03/20 24 02/04/2024 BASIC METAB OLIC PANEL BUN 25 mg/dL 7-18 high Not Available [address], [address], 02/04/2024 11:24:51 02/03/20 24 02/04/2024 BASIC METAB OLIC PANEL creatinine 1.0 mg/dL 0.8-1. 3 Not Available [address], [address], 02/04/2024 11:24:51 02/03/20 24 02/04/2024 BASIC METAB OLIC PANEL B/C 25.0 ratio Not Available [address], [address], 02/04/2024 11:24:51 02/03/20 24 02/04/2024 BASIC METAB OLIC PANEL GFR >=60ML /MIN mL/mi n normal >=60m L/min - Mandy l or midly reduc ed <60mL /min- Decre ased kidne y funct ion <15mL /min - Kidne y failu re [facility] calcu lates estim ated Glome rular Filtr ation Rate (eGFR ) using the Chron ic Kidne y Disea se Epide miolo gy Colla borat ion (CKD- EPI) Equat ion (Shraddha diane et. al 2020) as recom yissel d by the Natio nal Kidne y Found ation . eGFR is based on age, serum creat inine , and sex. CKD-E PI does not calcu late eGFR by race, does not apply to child shoshana (age <18 years ), and shoul d not be used in pregn karl. Not Available [address], [address], 02/04/2024 11:24:51 02/03/20 24 02/04/2024 BASIC METAB OLIC PANEL sodium 142 mmol/ L 136-14 5 Not Available [address], [address], 02/04/2024 11:24:51 02/03/20 24 02/04/2024 BASIC METAB OLIC PANEL potassium 4.3 mmol/ L 3.5-5. 1 Not Available [address], [address], 02/04/2024 11:24:51 02/03/20 24 02/04/2024 BASIC METAB OLIC PANEL chloride 104 mmol/ L 96-107 Not Available [address], [address], 02/04/2024 11:24:51 02/03/20 24 02/04/2024 BASIC METAB OLIC PANEL anion gap 8.3 5.0-15 .0 Not Available [address], [address], 02/04/2024 11:24:51 02/03/20 24 02/04/2024 BASIC METAB OLIC PANEL CO2 30 mmol/ L 21-32 Not Available [address], [address], 02/04/2024 11:24:51 02/03/20 24 02/04/2024 BASIC METAB OLIC PANEL calcium 8.7 mg/dL 8.5-10 .3 LIPG= Speci men Marke dly Lipem ic. Chem Resul ts may be effec rao. Not Available [address], [address], 02/04/2024 11:24:51 Result Notes None recorded. Problems Name Problem SNOMED Code Status Onset Date Resolution Date Notes Provider Name and Address Organization Details Recorded Time Benign essential hypertens ion 5469220 Active 2018 MD [place], [address], [facility] 2 14:05:35 Obstructi ve sleep apnea syndrome 88990247 Active 2018 [place], [address], [facility] 2 14:05:47 Seasonal allergy 755531321 Active 2018 MD [place], [address], [facility] 2 14:06:15 Adenocarc inoma of prostate 329215700 Completed 200807/03/2021 MD [place], [address], [facility] 2 14:06:28 Diverticu losis of sigmoid colon 840691758 Active 2019 Ciara Beck MA null, [facility] 0 11:58:13 Overweigh t 675132564 Active 2019 [place], [address], [facility] 2 14:05:39 Bilateral cataracts 27759138 Completed 202007/03/2021 MD [place], [address], [facility] 2 14:05:56 Varicose veins of right lower limb 279008409594 [address] Active 2020 [place], [address], [facility] 4 12:04:24 Hyperglyc emia 30964849 Active 2021 [place], [address], [facility] 4 11:55:08 Depressiv e disorder 03039371 Active 2022 Genesis Alexandre MD [address] [place] [address] [place], [address], [facility] 3 17:04:20 Cardiomeg mili 7722577 Active 2024 Genesis Alexandre MD [address] [place] [address] [place], [address], [facility] 5 14:15:57 Problem Notes None recorded. Procedures Surgical History Date Name Laterality Status Provider Name and Address Organization Details Recorded Time 05/18/19 25 Advanced Care Planning completed Genesis Muhammad MA [facility] 05/17/2024 08:04:04 08/11/19 24 Medicare Wellness Visit completed Genesis Muhammad MA [facility] 08/06/2023 12:03:27 07/08/19 23 Medicare Wellness Visit completed Genesis Muhammad MA [facility] 07/03/2022 11:33:15 03/13/19 23 Ganglion Injection completed Candelario Michael MD [address] [place] [address], [address], [facility] 03/15/2022 19:20:56 10/22/19 22 [address]: Therapeutic Exercise completed Maik Fuller, PT [address] [place], [address], [facility] 10/21/2021 21:34:37 10/22/19 22 Treatment and Advice completed Maik Fuller, PT [address] [place], [address], [facility] 10/21/2021 17:50:09 10/10/19 22 Physical Activity Counselling completed Maik Fuller, PT [address] [place], [address], [facility] 10/09/2021 14:37:31 10/10/19 22 [address]: PT Eval Low Complexity completed Maik Fuller, PT [address] [place], [address], [facility] 10/09/2021 14:37:31 10/10/19 22 Treatment and Advice completed Maik Fuller, PT [address] [place], [address], [facility] 10/09/2021 15:03:31 07/04/19 22 Medicare Wellness Visit completed Genesis Muhammad MA [facility] 04/01/2021 10:51:59 07/04/19 22 Alcohol use screening completed Genesis Muhammad MA [facility] 04/01/2021 10:51:59 07/04/19 22 Cardiovascular disease risk reduction counseling completed Genesis Muhammad MA [facility] 04/01/2021 10:51:59 04/10/19 21 Medicare Wellness Visit completed Genesis Alexandre MD [address] [place], [address], [facility] 04/09/2020 10:26:51 04/10/19 21 prevention-cardiov ascular risk reduction counseling completed Genesis Muhammad MA [facility] 04/09/2020 08:27:58 04/10/19 21 prevention-annual alcohol misuse screening completed Genesis Muhammad MA [facility] 04/09/2020 08:27:58 04/04/19 20 Medicare Wellness Visit completed Ciara Beck MA [facility] 04/04/2019 10:38:03 04/04/19 20 prevention-cardiov ascular risk reduction counseling completed Ciara Beck MA [facility] 04/04/2019 10:38:03 04/04/19 20 prevention-annual alcohol misuse screening completed Ciara Beck MA [facility] 04/04/2019 10:38:03 07/11/19 19 POC Strep Testing completed Tiffany Alanis MA [facility] 07/10/2018 09:03:59 03/24/19 19 Medicare Wellness Visit completed ANDREA Rocha [facility] 03/24/2018 10:17:28 Imaging Results None recorded. Procedure Notes None recorded. Medical Equipment None Reported. Allergies Allergen ID Allergen Name Allergen Category Reaction Reaction Severity Criticality Documentation Date Start Date Code Code System Note Provider Name and Address Organization Details Recorded Time 126944 atenolol medicatio n dizziness Not available Not available 04/09/2020 1202 [facility] 1 10:09:08 161596 lisinopri l medicatio n cough Not available low 02/10/2024 62162 RxNorm [facility]ggie [facility] 5 10:13:53 Medications Name Sig Start Date Stop Date Status Note LastModified by Organization Details LastModified Time amoxicillin 500 mg capsule TAKE 4 CAPSULES BY MOUTH 1 HOUR PRIOR TO PROCEDURE active Not Available Not Available No t Available trazodone 50 mg tablet TAKE 1 TABLET BY MOUTH EVERY DAY active Not Available Not Available No t Available azithromyci n 250 mg tablet TAKE 2 TABLETS BY MOUTH TODAY, THEN TAKE 1 TABLET DAILY FOR 4 DAYS 09/20 completed Not Available Not Available Not Available metoprolol succinate ER 50 mg tablet,exte nded release 24 hr TAKE 1 TABLET BY MOUTH EVERY DAY active Not Available Not Available No t Available lisinopril 20 mg tablet TAKE 1 TABLET BY MOUTH EVERY DAY 01/07 completed Not Available Not Available Not Available ondansetron HCl 4 mg tablet 04/04 completed Not Available Not Available Not Available ketorolac 0.5 % eye drops 07/03 completed Not Available Not Available Not Available triamcinolo ne acetonide 0.025 % topical cream APPLY ONCE A DAY TO AFFECTED AREA OF RASH IN ABDOMINAL FOLDS ONLY NEEDED. active Not Available Not Available No t Available diltiazem CD 300 mg capsule,ext ended release 24 hr TAKE 1 CAPSULE BY MOUTH EVERY DAY active Not Available Not Available No t Available valsartan 320 mg tablet TAKE 1 TABLET BY MOUTH DAILY active Not Available Not Available No t Available metronidazo le 0.75 % topical cream 06/07 completed Not Available Not Available Not Available docusate sodium 100 mg capsule TAKE 1 CAPSULE BY MOUTH TWICE A DAY 05/09 completed PRN Not Available Not Available Not Available aspirin 81 mg chewable tablet Chew 1 tablet every day by oral route. 10/12 completed Not Available Not Available Not Available hydrochloro thiazide 25 mg tablet TAKE 1 TABLET BY MOUTH EVERY DAY active Not Available Not Available No t Available nystatin 100,000 unit/gram topical powder APPLY TO AFFECTED AREAS OF RASH IN ABDOMINAL FOLDS ONCE DAILY NEEDED. active Not Available Not Available No t Available lisinopril 40 mg tablet TAKE 1 TABLET BY MOUTH EVERY DAY active Not Available Not Available No t Available oxycodone 5 mg tablet 04/04 completed Not Available Not Available Not Available neomycin 3.5 mg/g-polymy diego B 10,000 unit/g-dexa meth 0.1 % eye oint APPLY 1/4 INCH STRIP APPLIED TO LID MARGINS @ BEDTIME 03/24 completed Not Available Not Available Not Available escitalopra m 5 mg tablet TAKE 1 TABLET BY MOUTH EVERY DAY active Not Available Not Available No t Available hydrochloro thiazide 12.5 mg tablet TAKE 1 TABLET BY MOUTH EVERY DAY 10/12 completed Not Available Not Available Not Available azelastine 205.5 mcg (0.15 %) nasal spray [place] 1 spray twice a day by intranasa l route as needed. active Not Available Not Available No t Available Shingrix (PF) 50 mcg/0.5 mL intramuscul ar suspension, kit 04/04 completed Not Available Not Available Not Available Fluzone High-Dose 0794-0127 (PF) 180 mcg/0.5 mL intramuscul ar syringe TO BE ADMINISTE RED BY PHARMACIS T FOR IMMUNIZAT ION 07/11 completed Not Available Not Available Not Available Flowflex COVID-19 Antigen Home Test kit USE DIRECTED 05/06 completed Not Available Not Available Not Available Vitals Date Recorded Body height Body mass index (BMI) Body weight Body temperature Oxygen saturation Oxygen saturation in Arterial blood by Pulse oximetry Heart rate Systolic blood pressure Diastolic blood pressure Provider Name and Address Organization Details Last Updated DateTime 4 173.36 cm 28.2 kg/m2 19923.4 7 g 96.9 [degF] 98 % 98 % 50 /min 120 mm[Hg] 60 mm[Hg] Genesis Muhammad MA [facility] 4 11:40:53 Date Recorded Body height Body mass index (BMI) Body weight Heart rate Systolic blood pressure Diastolic blood pressure Provider Name and Address Organization Details Last Updated DateTime 4 173.36 cm 27.5 kg/m2 38327.8 1 g 60 /min 129 mm[Hg] 60 mm[Hg] Patito Chaudhry [facility] 4 08:37:28 Date Recorded Body height Body mass index (BMI) Body weight Oxygen saturation Oxygen saturation in Arterial blood by Pulse oximetry Heart rate Systolic blood pressure Diastolic blood pressure Provider Name and Address Organization Details Last Updated DateTime 5 173.36 cm 28.3 kg/m2 40486.8 7 g 97 % 97 % 60 /min 120 mm[Hg] 64 mm[Hg] Genesis Muhammad MA [facility] 5 10:16:41 Date Recorded Body height Body mass index (BMI) Body weight Body temperature Oxygen saturation Oxygen saturation in Arterial blood by Pulse oximetry Heart rate Systolic blood pressure Diastolic blood pressure Provider Name and Address Organization Details Last Updated DateTime 5 173.36 cm 28.2 kg/m2 27799.7 7 g 96.6 [degF] 97 % 97 % 65 /min 140 mm[Hg] 64 mm[Hg] Genesis Muhammad MA [facility] 5 15:30:07 Social History Question Answer Notes LastModified by Organizat ion Details LastModified Time Tobacco Smoking Status Former Smoker ANDREA Rocha, [facility] 03/24/2018 10:29:15 What Is Your Level Of Alcohol Consumption? None Quit In 2013 Information not available 03/24/2018 Do You Wear A Helmet When Biking? Yes Information not available 03/24/2018 What Is Your Level Of Caffeine Consumption? Moderate Information not available 03/24/2018 Are You Currently Employed? No Retired Information not available 07/03/2021 What Type Of Diet Are You Following? REGULAR Information not available 03/24/2018 Which Illicit Or Recreational Drugs Have You Used? No Information not available 03/24/2018 Do You Or Have You Ever Used E-cigarettes Or Vape? 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 Information not available 03/24/2018 Have There Been Any Changes To Your Family Or Social Situation? No Information not available 07/03/2021 How Many Days In The Past Year Have You Had A Heavy Drinking Consumption (4+ Female, 5+ Male)? 0 Information not available 03/24/2018 Are There Any Guns Present In Your Home? Yes Locked Information not available 03/24/2018 Do You Use Insect Repellent Routinely? No Information not available 07/03/2021 Live Alone Or With Others? With Others Information not available 03/24/2018 Patient Has Health Care Proxy Signed And In Chart Yes [email or web address] Information not available 03/24/2018 MOLST Form Signed And In Chart 05/17/2024 [email or web address] Information not available 05/22/2024 Marital Status Genna Since 1983, In 2013 Information not available 03/24/2018 Mosquito Repellent Used Routinely No Information not available 03/24/2018 What Was The Date Of Your Most Recent Tobacco Screening? 05/17/2024 Information not available 05/17/2024 How Many Children Do You Have? 0 Information not available 03/24/2018 What Is Your Current Pack Years? 10packyears Information not available 03/24/2018 What Is Your Relationship Status? Information not available 07/03/2021 Do You Use Your Seat Belt Or Car Seat Routinely? Yes Information not available 07/03/2021 Seat Belts Used Routinely Yes Information not available 03/24/2018 Are You Sexually Active? No Information not available 03/24/2018 Smoke Alarm In Home Yes Information not available 03/24/2018 Do You Have Smoke And Carbon Monoxide Detectors In Your Home? Yes Information not available 07/03/2021 Are You Passively Exposed To Smoke? No Information not available 07/03/2021 Do You Or Have You Ever Used Smokeless Tobacco? Never Used Smokeless Tobacco Information not available 01/12/2019 What Types Of Sporting Activities Do You Participate In? Rowing Machine, Some Weights Information not available 03/24/2018 General Stress Level Low Information not available 03/24/2018 Do You Use Sunscreen Routinely? Yes Information not available 03/24/2018 Do You Or Have You Ever Used Any Other Forms Of Tobacco Or Nicotine? No Information not available 12/30/2021 Sex: Male Functional Status Question Answer Note LastModified by Organization D etails LastModified Time What is your exercise level? Moderate Information not available 07/03/2021 Mental Status None recorded. Family History Relationship Description Onset Age of this Age Resolved Age Notes LastModified by Organization Details LastModified Time Father Alcoholism [email or web address] Not availab le 03/24/2018 10:50:25 Father Congestive heart failure 82 [email or web address] Not available 2018 10:51:52 Father Malignant neoplasm of prostate [email or web address] Not available 2018 10:52:03 Father Aortic aneurysm spise Not available 2019 11:59:37 Mother Alcoholism [email or web address] Not availab le 03/24/2018 10:50:25 Mother Hypertensive disorder [email or web address] Not available 2018 10:51:33 Mother Dementia spise Not available 0 04/04/2019 11:59:58 Maternal Grandfather Diabetes mellitus [email or web address] Not available 2018 10:52:14 Maternal Grandfather Coronary arterioscler osis [email or web address] Not available 2018 10:52:24 Sister Malignant tumor of breast [email or web address] Not available 2018 10:52:45 Sister Chronic myeloid leukemia spise Not available 2019 12:01:06 Notes:no known family hx of colon cancer father age 82, mother age 70 Medical History No medical history recorded. Immunizations Vaccine Type Date Status Note Provider Nam e and Address Organization Details Recorded Time pneumococcal polysaccharide PPV23 0 completed Genesis Alexandre MD [address] [place] [address], [address], [facility] 04/04/2019 11:22:25 Influenza, split virus, quadrivalent, preservative 8 completed ANDREA Rocha, [facility] 03/24/2018 10:23:26 zoster recombinant 9 completed IMAN Lemus, [facility] 10/11/2018 08:15:39 Influenza, high-dose, quadrivalent, PF 0 completed [facility] 12/09/2019 16:22:17 zoster, unspecified formulation 0 completed Ree [facility]banez [facility] 10/19/2019 15:38:37 zoster, unspecified formulation 0 completed Ree Ibanez RMA [facility] 10/19/2019 15:38:48 COVID-19, mRNA, LNP-S, PF, 30 mcg/0.3 mL dose 0 completed Marie North [facility] 02/27/2020 12:33:36 COVID-19, mRNA, LNP-S, PF, 30 mcg/0.3 mL dose 1 completed Marie North IMAN [facility] 02/27/2020 12:34:58 Influenza, high-dose, quadrivalent, PF 2 completed Ciara Beck MA [facility] 11/22/2021 14:14:30 Influenza, high-dose, quadrivalent, PF 3 completed Tiera Cervantes LPN [facility] 12/03/2022 14:31:53 Influenza, high-dose, trivalent, PF 4 completed Domenico Guo IMAN [facility] 11/11/2023 17:25:50 COVID-19, mRNA, LNP-S, PF, 30 mcg/0.3 mL dose 1 completed [facility] 01/13/2024 11:02:11 Influenza, split virus, quadrivalent, preservative 1 [facility] 01/07/2021 12:17:29 COVID-19, mRNA, LNP-S, PF, 100 mcg/0.5mL dose or 50 mcg/0.25mL dose 2 [facility] 01/13/2024 11:02:11 COVID-19, mRNA, LNP-S, PF, 100 mcg/0.5mL dose or 50 mcg/0.25mL dose 2 [facility] 10/14/2021 08:14:30 COVID-19 mRNA, bivalent, original/Omicron BA.1, Non-US Vaccine (Spikevax Bivalent), Moderna 3 completed [facility] 07/07/2022 16:16:22 SARS-COV-2 (COVID-19) vaccine, UNSPECIFIED 3 completed [facility] 11/13/2022 14:25:22 Respiratory syncytial virus (RSV) MAB, unspecified 3 completed [facility] 01/07/2023 16:26:43 zoster recombinant 9 [facility] 01/13/2024 11:02:10 Influenza, adjuvanted, quadrivalent, PF 1 [facility] 01/13/2024 11:02:11 SARS-COV-2 (COVID-19) vaccine, UNSPECIFIED 1 [facility] 01/13/2024 11:02:11 COVID-19, mRNA, LNP-S, bivalent, PF, 50 mcg/0.5 mL or 25mcg/0.25 mL dose 3 [facility] 01/13/2024 11:02:11 COVID-19, mRNA, LNP-S, bivalent, PF, 50 mcg/0.5 mL or 25mcg/0.25 mL dose 2 completed [facility] 01/13/2024 11:02:11 RSV, recombinant, protein subunit RSVpreF, adjuvant reconstituted, 0.5 mL, PF 3 completed [facility] 01/13/2024 11:02:11 COVID-19, mRNA, LNP-S, PF, 50 mcg/0.5 mL 4 completed [facility] 01/13/2024 11:02:11 COVID-19, mRNA, LNP-S, PF, 50 mcg/0.5 mL 3 completed [facility] 01/13/2024 11:02:11 Influenza, high-dose, trivalent, PF 9 [facility] 01/13/2024 11:02:11 Influenza, high-dose, trivalent, PF 7 completed [facility] 01/13/2024 11:02:11 Influenza, high-dose, trivalent, PF 8 [facility] 11:02:11 Influenza, split virus, trivalent, preservative 6 [facility] 11:02:11 Td (adult), 2 Lf tetanus toxoid, preservative free, adsorbed 0 completed [facility] 01/13/2024 11:02:11 SARS-COV-2 (COVID-19) vaccine, UNSPECIFIED 4 completed [facility] 01/13/2024 11:02:22 SARS-COV-2 (COVID-19) vaccine, UNSPECIFIED 4 [facility] 01/13/2024 11:02:22 COVID-19, mRNA, LNP-S, PF, 50 mcg/0.5 mL 4 [facility] 01/13/2024 11:02:22 SARS-COV-2 (COVID-19) vaccine, UNSPECIFIED 4 completed IMAN Wilson, [facility] 01/13/2024 11:02:45 SARS-COV-2 (COVID-19) vaccine, UNSPECIFIED 5 completed IMAN Wilson, [facility] 05/18/2024 09:24:10 Past Encounters Encounter ID Performer Location Encounter Start Date Encounter Closed Date Diagnosis/Indication Diagnosis SNOMED-CT Code Diagnosis ICD10 Code Diagnosis Note [id number] Candelario Michael MD , [facility], [address] [place] [address] 03/24/2018 09:47:40 03/24/2018 11:12:30 Adult health examination 319354643 Z00.00 see Risk Assessment and Lifestyle Change Counseling section above Counseling 486754903 Z71 .9 Depression screening 171 114509 Z13.89 depression screening tool administer ed, entered into emr, scored and discussed, time greater than 7.5 minutes Obstructiv e sleep apnea syndrome 60180749 G47.33 dx with sleep study over a year ago, did not want to tx without f/u with MD which he could not getrepeate d the study with sleep medicine in [facility] n no f/u, doesn't have this resultresu lt clear for apneadiscu ssed given his age and hx, unlikely would reverse with modest weight loss, he is not signifcant ly over weighthe also doesn't really have sx other than snoringno somnolence he is aware cardiac/st roke risk, he has well tx htn Benign ess ential hypertension 0935202 I10 at goal on current meds< 140/90 will refill when neededHCTZ /lisinopri l/diltiaze m Seasonal allergy 1853563 04 J30.2 tx in season as needed [id number] Iván Young MD , [facility], [address] [place] [address] 07/10/2018 08:49:15 07/10/2018 09:30:45 Pain in throat 382915309 R07.0 Pneumonia 829056603 J18. 9 [id number] Chandu Moy MD , [facility], [address] [place] [address] 07/11/2018 10:52:42 07/11/2018 11:26:17 Benign essential hypertension 9643739 I10 stable bp. continue medication s. check bmp and lipid panel prior to appt with Dr Alexandre. Active or passive immunization 238830866 Z23 Pneumonia 450514694 J18. 9 diagnosed yesterday in urgent care. started tx with Azithromyc in 5 day course. Sx improving still with fine bibasilar crackles. Also with upper respirator y congestion continue neti pot elevate head of bed. finish abx. hemodynami ev stable. f/u as planned. [id number] Genesis Alexandre MD , [facility], [address] [place] [address] 09/20/2018 08:47:48 09/20/2018 09:31:28 Benign essential hypertension 6417501 I10 at goal, no med changesrou krysta labs in Mar Seasonal allergy 3673081 04 J30.2 tx in season as needed Obstructiv e sleep apnea syndrome 44873775 G47.33 having to repeat a sleep studynot on CPAP yet Pain of ri ght shoulder joint 1282727729 3444174 M25.511 on exam more impingemen t, rotator cuff strainwill check xray given Left shoudler OA and replacemen t and ageconside r course of PT or ortho referral pending imaging [id number] Genesis Alexandre MD , [facility], [address] [place] [address] 01/12/2019 13:15:20 01/12/2019 14:04:09 Obstructive sleep apnea syndrome 35087569 G47.33 doing well now with CPAPless sx- less tired and sleeping betteradju sting to using mask Benign ess ential hypertension 1864973 I10 at goal,goal < 130/80no med changeslab s done pre-op reviewed 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 0906452064 61917 M19.011 having complete joint replacemen t on 01/27/19[facility] and [facility] for this surgerycan continue blood pressure mgmt and CPAP [id number] Genesis Alexandre MD , [facility], [address] [place] [address] 04/04/2019 10:10:35 04/04/2019 11:25:14 Adult health examination 608864923 Z00.00 see Risk Assessment and Lifestyle Change Counseling section above Counseling 082316582 Z71 .9 including cardiovasc ular risk reduction counseling Depression screening 171 645541 Z13.89 depression screening tool administer ed, entered into emr, scored and discussed, time greater than 7.5 minutes Screening for alcohol abuse 002250443 Z13.39 no ETOH past seven yearsgrew up with alcoholic parentssta rting to be able to talk more with his siblings about their experience s Benign ess ential hypertension 7773117 I10 at goal,goal < 130/80will trial lower dose of HCTZ and f/u one month Seasonal allergy 9728136 04 J30.2 tx in season as needed Obstructiv e sleep apnea syndrome 91374994 G47.33 stable with CPAP Active or passive immunization 096485105 Z23 Acquired h allux valgus 22041234 M20.12 noting changesnot having painwould like to be proactivep odiatry referral for eval [id number] Chandu Moy MD , [facility], [address] [place] [address] 05/10/2019 08:51:50 05/10/2019 11:48:17 Anxiety 62296192 F41.9 notes anxiety related to pandemicmo stly manifestin g at night when he wakesfeels manageable discussed his routines and ways to copewill consider less going out and will consider some breath work or meditation will call if desires medicaiton has hx w use and success of celexa when needed Benign ess ential hypertension 9317810 I10 at goal, when checked in community a week agono SE on lower dose HCTZ goal < 130/80f/u one month, can push this out if needed for in office visit Obstructiv e sleep apnea syndrome 25539020 G47.33 stable with CPAP Seasonal allergy 9514406 04 J30.2 tx in season as needed [id number] Chandu Moy MD , [facility], [address] [place] [address] 06/08/2019 11:23:38 06/09/2019 10:12:30 Benign essential hypertension 6404712 I10 goal < 130/80at goal on average at hometolera ting lower HCTZ doselabs done March Obstructiv e sleep apnea syndrome 60272106 G47.33 stable with CPAP but having some skin issues with nasal pillowswil l call sleep med about altering this fit or mask Seasonal allergy 6116134 04 J30.2 tx in season as neededno severe sx Adenocarci noma of prostate 133547180 C61 sees urology annually- Umberto Baeza had undetectab le PSA for some yearshad visit in March Skin irritation 57448804 7 L30.9 from CPAP maskwill check w sleep medicine to alter maskdoes not have s/sx infection, fungal or otherwise and 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 [id number] Chandu Moy MD , [facility], [address] [place] [address] 06/23/2019 09:02:21 06/26/2019 09:45:20 Benign essential hypertension 2822703 I10 goal < 130/80at goal at homeno changes todayno in office visit necessary at this time given good control Obstructiv e sleep apnea syndrome 66942018 G47.33 stable with CPAP butwas having some skin issues with nasal pillows but got new ones and the issue resolved Conjunctiv al hemorrhage of right eye 8644019224 74591 H11.31 small inner upper notedresol vingnot sxno recent injuryreas surance unlikely related to BP and may have been from rubbing eyeon baby ASAokay continue current meds [id number] Chandu Moy MD , [facility], [address] [place] [address] 10/13/2019 09:27:30 10/13/2019 14:53:41 Benign essential hypertension 2818464 I10 goal < 130/80at goal at homeoff HCTZwill get cardiology notes, not in chartnot sxlosing weight, working out, using CPAP Screening for disorder 819698444 Z11.59 Obstructiv e sleep apnea syndrome 47615318 G47.33 committed to CPAP at this pointreali zes benefit on cardiac health Overweight 049026808 E66 .3 weight downmore vigorous work out programfee angella suresh watching diet, healthy choices [id number] Chandu Moy MD , [facility], [address] [place] [address] 11/08/2019 15:30:23 11/09/2019 10:42:37 Active or passive immunization 889739468 Z23 [id number] Chandu Moy MD , [facility], [address] [place] [address] 12/09/2019 08:02:33 12/11/2019 13:40:54 Active or passive immunization 099295807 Z23 [id number] Genesis Alexandre MD , [facility], [address] [place] [address] 04/09/2020 10:05:08 04/11/2020 11:16:06 Adult health examination 279372988 Z00.00 see Risk Assessment and Lifestyle Change Counseling section above Counseling 253057542 Z71 .9 including cardiovasc ular risk reduction counseling Depression screening 171 164018 Z13.89 depression screening tool administer ed, entered into emr, scored and discussed, time greater than 7.5 minutes Screening for alcohol abuse 828322074 Z13.39 no ETOH past eight years alcoholic parents, committed to sobriety at this point Benign ess ential hypertension 3974688 I10 goal < 130/80 close to goal has f/u with cardiology and will get reading there this month had total cholestero l at blood donation, 157 f/u 6 months Overweight 446488045 E66 .3 weight stable good diet healthy exercise pattern and active with volunteer work Obstructiv e sleep apnea syndrome 63420665 G47.33 committed to CPAP at this point sleeping well sleeps through the night occ gets up to urinate Adenocarci noma of prostate 917030477 C[address] annual [address] Dr Umberto Wade PSA still undetectab le and should check once a year for life given his YADIRA score no incontinen ce issues related to surgery [id number] Genesis Alexandre MD , [facility], [address] [place] [address] 10/11/2020 09:46:17 10/11/2020 10:33:57 Benign essential hypertension 2195235 I10 goal < 130/80 close to goal but elevated on recheckon metoprolol nowhaving less palpitatio n type sxf/u one month recheck BP Obstructiv e sleep apnea syndrome 70682539 G47.33 does well with CPAPsleepi ng wellocc nocturia x 1daytime naps if not busyenc normal and to nap as desired Overweight 806941655 E66 .3 weight up a bitdoes 30 min rowing dailyenc walking, watch diet, weight Bilateral cataracts 9572 2003 H26.9 will select eye surgeondis cussion today 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 5552683186 7974116 I83.91 asxreassur ancecould use compressio n [id number] Genesis Alexandre MD , [facility], [address] [place] [address] 11/12/2020 14:38:09 11/12/2020 15:20:10 Benign essential hypertension 0945509 I10 goal < 130/80at goalcontin ue meds and lifestyle mod f/u at wellness visit Overweight 254511718 E66 .3 weight downhas figured how to maintain with diet adjustment sstable exercisego al to continue Spinal jas nosis of lumbar region 10415442 M48.061 low back is stiffhurts with more sedentary activitywo uld like to do some PTlikes ATI in [place], convenient for himenc to move and not sit at computer so long, even just taking more breaks in interim [id number] Genesis Alexandre MD , [facility], [address] [place] [address] 01/07/2021 12:11:51 01/15/2021 13:23:09 Benign essential hypertension 3227561 I10 goal < 130/80clos e to goalnotes anxious today about surgerynot sxno changes to mgmtcontin ue meds and lifestyle mod f/u at wellness visit Overweight 422686998 E66 .3 keeping weight downstable diet/exerc ise Spinal jas nosis of lumbar region 63524577 M48.061 doing well with PThas completed course this weekwill do HEP Bilateral cataracts 9572 2003 H26.[address] Loera is a good candidate and cleared for surgery Excessive tear production 281620532 H04.[address] Do, notes latrell with yawning or cold weather [id number] Genesis Alexandre MD , [facility], [address] [place] [address] 07/03/2021 13:51:26 07/03/2021 14:21:54 Adult health examination 887002344 Z00.00 see Risk Assessment and Lifestyle Change Counseling section above Counseling 907426257 Z71 .9 including cardiovasc ular risk reduction counseling Depression screening 171 910861 Z13.31 depression screening tool administer ed, entered into emr, scored and discussed, time greater than 7.5 minutes Screening for alcohol abuse 228075226 Z13.39 no ETOH past eight years alcoholic parents, committed to sobriety at this point Benign ess ential hypertension 4571560 I10 goal < 130/80at goalnot sxno changed f/u 6 mo Overweight 087434939 E66 .3 keeping weight downstable diet/exerc ise Obstructiv e sleep apnea syndrome 35079806 G47.33 does well with CPAPsleepi ng welldaytim e naps if he has time, doesnt miss them when busyreassu cyn this is normal Seasonal allergy 5422184 04 J30.2 tx in season as needednot sx this year History of malignant neoplasm of prostate 771438670 Z85.46 followed by urology, annual PSAhas been undetectab le Hyperglycemia 33057664 R 73.9 A1C runs in prediates rangefamil y hx DM with cardiac complicati onsreassur ance likely genetic and he keeps at bay with his exercise and dietannual A1C for monitoring [id number] Candelario Michael MD , [facility], [address] [place] [address] 09/29/2021 15:54:46 10/03/2021 09:20:22 Sciatica 53840055 M54.31 Assessment and plan: Sciatica. location of pain and radiation most consistent withSciati ca is L3, L4 trunk nerve that come down along here and goes it goes all the way down to the leg.The discomfort is due to the nerve being compressed somewhere. Due to the disc bulging out in the back this can happen. To stop aggravatin gheshould definitely walkInstru cted to avoid lifting and bending until this settles a bit.Inform ed to do stretching and back exercises and to put heat and ice on it.If ibuprofen is not helping then switch over to Aleve 2 in the morning and 2 at night for a week.If it does not improve with this then we will move on physical therapy Insomnia 970130742 G47.0 0 Essential hypertension 62777855 I10 Hypertensi on.Blood pressure is slightly elevated.C heck blood pressure after you get off all the medicines like ibuprofen and Aleve.Inst ructed to get blood pressure checked regularly. He is already on metoprolol , lisinopril and diltiazem. Prescribed trazodone for sleep as needed which is an antidepres talisha medicine. This note has been generated by Felipe HEARD and edited by Jeff izquierdo.S Quality Documentat ion Specialist . [id number] Genesis Alexandre MD , [facility], [address] [place] [address] 10/08/2021 16:54:46 10/08/2021 17:50:40 Right side sciatica 0567344633 80686 M54.31 pain on right side that is low back but was radiating to leg now more in that areacannot reproduce painhurts at nighthard to get comfortabl edoesn't like taking aleve or not doing his rowinghe is improvinga dvised to start PT and will f/u as needed Benign ess ential hypertension 7781311 I10 goal < 130/80not at goalnot sxno changeswas elevated last visitincre ase lisinopril to 40 mghas BP clinic appt on 10/24 [id number] Maik Fuller , PT Physical Therapy, [facility] [address] [place] [address] 10/09/2021 14:18:32 10/09/2021 16:37:42 Right side sciatica 0391144556 01970 M54.31 81 year old {{female m kaylie*}} with night time right-side d back pain. Today in the clinic we were unable to reproduce his symptoms. We will begin with physical therapy focusing on flexion based exercise program and assess effect on his abiility to sleep Patient has significan t functional limitation in their {{activiti es of daily living* ac tivities of daily living and work capacity a ctivities of daily living and exercise capacity a ctivities of daily living and recreation }}. Skilled physical therapy is needed to safely and progressiv sydnie address impairment s and functional limitation s as outlined below.Alondra ent Goals: Able to sleep the night and change positions in bed without limitation s to the right lumbosacra l Clinical Goals: 1. Demonstrat e symmetric pain free active, passive and resisted motions of the {{neck and upper extremitie s shoulder elbow, forearm and wrist trun k and lower extremitie s* hip kne e ankle}}. 2. Demonstrat e sufficient muscular endurance to meet functional demands. Treatment Plan: Patient to return for {{4 6 8* 1 0}} visits over {{ 8 12*} } weeks. We expect significan t change in pain, impairment and function in this time frame.Sonal tment to Include: Therapeuti c exercise and manual therapy [id number] Maik Fuller , PT Physical Therapy, [address] [address] 10/21/2021 17:25:33 10/22/2021 09:11:10 Right side sciatica 9823587561 89998 M54.31 81 year old {{female m kaylie*}} with night time right-side d back pain. Today in the clinic we were unable to reproduce his symptoms. We will begin with physical therapy focusing on flexion based exercise program and assess effect on his abiility to sleep Patient has significan t functional limitation in their {{activiti es of daily living* ac tivities of daily living and work capacity a ctivities of daily living and exercise capacity a ctivities of daily living and recreation }}. Skilled physical therapy is needed to safely and progressiv sydnie address impairment s and functional limitation s as outlined below.Alondra ent Goals: Able to sleep the night and change positions in bed without limitation s to the right lumbosacra l Clinical Goals: 1. Demonstrat e symmetric pain free active, passive and resisted motions of the {{neck and upper extremitie s shoulder elbow, forearm and wrist trun k and lower extremitie s* hip kne e ankle}}. 2. Demonstrat e sufficient muscular endurance to meet functional demands. Treatment Plan: Patient to return for {{4 6 8* 1 0}} visits over {{ 8 12*} } weeks. We expect significan t change in pain, impairment and function in this time frame.Sonal tment to Include: Therapeuti c exercise and manual therapy [id number] Candelario Michael MD , [facility], [address] [place] [address] 11/22/2021 10:53:20 12/22/2021 11:44:27 Active or passive immunization 041682028 Z23 [id number] Genesis Alexandre MD FP, [facility], [address] [place] [address] 12/30/2021 09:53:12 12/30/2021 11:01:30 Hyperglycemia 36663178 R73.9 A1C, prediabete sfamily hx DM with cardiac complicati onsresiomara nicholas likely genetic and he keeps at bay with his exercise and dietannual A1C for monitoring Benign ess ential hypertension 2581235 I10 goal < 130/80at goal todaynot sx since increasing lisinopril followed by cardiology no changeswas elevated last visitf/u in 6 mo Overweight 084095563 E66 .3 keeping weight downstable diet/exerc iserowing, doing constructi on Depressive disorder 3548 9007 F32.A Past several weeksRecen t loss of a friendHad been on SSRI in the pastwill talk with his partner and then portal if he wants to start medsconsid er escitalopr am 5-10 mg [id number] Candelario Michael MD , [facility], [address] [place] [address] 03/13/2022 13:21:16 03/13/2022 16:28:58 Ganglion cyst of left hand 3211628601 42470 M67.442 s/p aspiration and injection [id number] Genesis Alexandre MD , [facility], [address] [place] [address] 04/07/2022 13:23:43 04/07/2022 14:30:46 Benign essential hypertension 0676488 I10 goal < 130/80at goal todaylower no changes todaywill f/u one month for mood Obstructiv e sleep apnea syndrome 82038486 G47.33 does well with CPAPsleepi ng well Overweight 856917358 E66 .3 stable with good exercise routinewat ches dietgoal not to gain Hyperglycemia 45075182 R 73.9 A1C, prediabete s6.1 a year agocan rescreen with next labs Depressive disorder 3544 9527 F32.A notes chronic AM sxnotes patternawa re of fear of and anxietiese nc therapysta rt escitalopr amf/u one monthrevie wed possible [place] [id number] Genesis Alexandre MD , [facility], [address] [place] [address] 05/06/2022 12:08:31 05/06/2022 14:06:58 Benign essential hypertension 8607122 I10 goal < 130/80at goal today Depressive disorder 3548 1687 F32.A sx much abated on escitalopr am and change of light/spri ng comingno reported SEdiscussi on today tx and adding therapyhe is very interested in thiswill try to set [facility] escitalopr am at that time if he wants to see if effect mainly change in light. talkinghe seems to do better after talking and awknowledg ing how he feels [id number] Genesis Alexandre MD , [facility], [address] [place] [address] 07/07/2022 16:07:18 07/07/2022 17:16:06 Adult health examination 699227482 Z00.00 see Risk Assessment and Lifestyle Change Counseling section above Depression screening 171 874361 Z13.31 depression screening tool administer ed Screening for alcohol abuse 247096485 Z13.39 Alcohol use screening tool administer ed Screening for malignant neoplasm of prostate 053370059 Z12.5 PSA testing for ages 55-69 risks and benefits discussed {{patient declines testing te st ordered}}. Hx of prostate biopsy and follows with urology who orders PSA Benign ess ential hypertension 2200767 I10 goal < 130/80at goal todayrouti ne f/ulabs reviewed Obstructiv e sleep apnea syndrome 76036343 G47.33 does well with CPAPsleepi ng well Overweight 616659888 E66 .3 stable with good exercise routinewat ches dietgoal not to gainworkin g on more strengthhe althy dietenc to maintain Seasonal allergy 4850588 04 J30.2 tx in season as neededalle gra effective Hyperglycemia 39297224 R 73.9 A1C, prediabete s6.2stable enc healthy exercise and diet Depressive disorder 2256 8423 F32.A sx much abated on escitalopr am and change of light/spri ng comingvery happy with thisno seno changes today [id number] Genesis Alexandre MD , [facility], [address] [place] [address] 12/03/2022 14:12:59 12/04/2022 11:46:11 Active or passive immunization 660536540 Z23 [id number] Genesis Alexandre MD , [facility], [address] [place] [address] 01/07/2023 16:08:45 01/07/2023 16:47:27 Cough 15562292 R05.9 nighttime cough, tickle feeling, clears w water or cough drop but wakes himsleeps wth CPAP normally on side, not elevatedwo nders about trial azelastine enc to try propping up firstthen allegracal l /write in w updatesren ew azelastine if he needs Benign ess ential hypertension 3311708 I10 goal < 130/80at goal todayrouti ne f/kelsea medication changes Obstructiv e sleep apnea syndrome 63934230 G47.33 does well with CPAPsleepi ng wellnotes nighttime cough that he gets most goetz Seasonal allergy 0414378 04 J30.2 tx in season as neededalle gra effectives topped in November? 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 [id number] Genesis Alexandre MD , [facility], [address] [place] [address] 08/11/2023 11:33:33 08/11/2023 12:18:18 Adult health examination 406471849 Z00.00 see Risk Assessment and Lifestyle Change Counseling section above Depression screening 171 258082 Z13.31 depression screening tool administer ed Screening for alcohol abuse 901358187 Z13.39 Alcohol use screening tool administer ed Benign ess ential hypertension 5908040 I10 goal < 130/80at goal todayrouti ne f/kelsea medication changes Obstructiv e sleep apnea syndrome 56025908 G47.33 stable w CPAP Depressive disorder 9658 7147 F32.A doing well on low dose escitalopr ammood is good, he is grateful Overweight 400341873 E66 .3 maintainsw orks to keep exercising daily and eating healthygoa l heart disease and vascular disease risk reduction Hyperglycemia 66599175 R 73.9 A1C, prediabete s6.3stable continue his healthy diet and exercise routine 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 9282810175 9938239 I83.91 asxreassur ancecould use compressio n [id number] Deedee Fischer MD FP, [facility], [address] [place] [address] 10/04/2023 08:31:46 10/06/2023 12:38:04 Gout 95796575 M10.9 exam suspicious for gout, partially improved with NSAIDscont inue NSAID until at baselineno indication for abxcheck uric acid levelpt agrees with plan [id number] Susanne Zamudio DO , [facility], [address] [place] [address] 11/11/2023 09:26:04 11/17/2023 13:05:44 Active or passive immunization 683617038 Z23 [id number] Genesis Alexandre MD , [facility], [address] [place] [address] 02/10/2024 10:10:21 02/11/2024 13:57:32 Benign essential hypertension [id number] I10 goal < 130/80at goal todaytoler ating valsartann o sx or SEroutine f/uat wellness Depressive disorder [id number] F32.A started meeting w bhaskar inding this helpfulfin ding his insights and learning how his feelings and thoughts work is helping himon low dose escitalopr amstable Hyperglycemia [id number] R 73.9 A1C, prediabete s6.3random glucose after lunch on BMP was 133stable diet and exercise [id number] Genesis Alexandre MD , [facility], [address] [place] [address] 05/17/2024 15:20:42 05/17/2024 16:12:12 Advance directive discussed with patient [id number] Z71.89 Advanced Care Planning 1. Advanced care planning was discussed for {{less than more than*}} 15 minutes. 2. Participan ts included {{patient* patient and family pat ient's family pat ient's surrogate} } and they were given an opportunit y to decline discussion . 3. Health Care Proxy {{was* was not}} discussed. 4. Patient {{has* has not}} completed Health Care Proxy form. {{It was It was not*}} given to take home. 5. Names(s) relationsh ip(s) of Health Care Proxy: Genna, then sister Lora Castro 6. MOLST {{was* was not}} discussed. 7. Patient {{has* has not}} completed MOLST form. 8. Details of discussion :has discussed w his these wishes, they are in agreementh e would like to be a full code, aware of the ramificati ons of such txhe would like only to be intubated for a short term trial, same w dialysis and tube feedings, of course if in his right mind and conversant may choose other decisions 9. Follow up needed: if new dx of severe medical illness or dementia Hypertroph ic cardiomyopathy [id number] I42.2 saw cardiology having cardiac MRIhe is the type of person who would rather know as much than watchful waitingawa re this may be due to years of HTN which is controlled at this time though elevated here today systolicre commend BP f/u one monthhere for MOLSt discussion Benign ess ential hypertension [id number] I10 goal < 130/80not at goal todaytoler ating valsartann o sx or SEf/u one month given elevations systolic Health Concerns Section Related Observation LastModified by Organization Detai ls LastModified Time None Recorded Concern Status LastModified by Organization Details LastModified Time None Recorded Advance Directives Directive None Recorded Payers Encounter Date Sequence Insurance Name Policy Number Policy [place]um[place] Covered Member ID Brumfield Member ID Guarantor Name 08/11/2023 2 [place] [id number] Sohan Friedman [id number] Sohan Friedman 08/11/2023 1 [place] [employer] Sohan Friedman [id number] Sohan Friedman 10/04/2023 2 [place] [id number] Sohan Friedman [id number] Sohan Friedman 10/04/2023 1 [place] [employer] Sohan Friedman [id number] Sohan Friedman 11/11/2023 2 [place] [id number] Sohan Friedman [id number] Sohan Friedman 11/11/2023 1 [place] [facility] Sohan Friedman [id number] Sohan Friedman 02/10/2024 2 [place] [id number] Sohan Friedman [id number] Sohan Friedman 02/10/2024 1 [place] [facility] Sohan Friedman [id number] Sohan Friedman 05/17/2024 2 [place] [id number] Sohan Friedman [id number] Sohan Friedman 05/17/2024 1 [place] [facility] Sohan Friedman [id number] 6 Sohan Friedman Notes Date Note Type Note Provider Name and Address Organization Details Recorded Time 08/11/2023 text/html Risk Assessment and Lifestyle Change Counseling (Medicare)Reported bypatient.Coronary Artery Disease Risk Assessment:Family History of Coronary Artery Disease(maternal grandfather); No personal history of diabetes; No history of peripheral vascular disease, AAA, or carotid disease; No personal history of coronary artery disease Breast Cancer Risk Assessment:Family history of breast cancer one first degree relative; No history of breast cancer or dcis Colon Cancer Risk Assessment:No family history of pre cancerous colon polyps or cancer Lung Cancer Risk Assessment:Former smoker quit more than 15 years ago; No asbestos exposure Fracture Risk Assessment:No unexplained fracture; No use of corticosteroids; No anti-seizure medication; Has adequate calcium intake; Taking Vitamin D supplement; No chronic use of proton pump inhibitors Cognitive/Behavioral Risk Assessment:Personal history of mental illness(depression, improved after residential); No family history of mental illness Safety Risk Assessment:Has grab bars in bathroom; Has rails on steps; No falls; No evidence of abuse/neglect; Do you feel safe in your current relationship?YES Functional Status:Patient does not have trouble hearing the television or radio when others do not.; Patient does not have to strain or struggle to hear/understand conversations; Patient does not need help with preparing meals, transportation, shopping, taking medicine, managing finances, or other activities of daily living.; Patient does not have visual loss that interferes with daily activities; Does not live alone; Patient was not unsteady and did not take longer than 30 seconds during the timed get up and go test.; Patient reports no falls in the past 6 months. Diet:Counseled about appropriate portion size; Counseled about eating a diet low in trans and saturated fats and high in fiber, fruits and vegetables; Counseled about the importance of maintaining a positive calcium balance and taking 1000 iu Vitamin D daily. 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 birds for two weekson board at [facility]and a good partner to Genna he notes he is in a much better place than his father was at this agehis father drank and smoked and Sohan doesn't do these thingsAnthmirna also exercises, 30 min rowing 5 days a week and some rowinghe is careful about what he eats and when concerns:-varicosity in right leg, it doesn't hurtcan have a sharp pain in the calf that is fleeting, the pain is every 1-2 monthsalways worries about a clothe is active and working to keep legs strong-getting hearing checked next weekalso eye doc and skin doc this summer mood is goodfeels happy about itfeels medication helpfuldoesn't want to try to come off as it doesn't bother him and he feels good allergy controlled with carmita and neti pot diet is largely vegetableslittle meat and more fish, some chickenthree meals a dayavoids fast foodno ETOH past ten years home is pretty good with Shady feels she is more anxious than in the pastrelationship is greatshe has more going on medicallyhe is grateful for the relationship sure urologist annually, has been phone visits, checking PSA every year undetectablesees cardiology annually Genesis Alexandre MD [address] [place] [address], [place], [phone], [facility] 08/11/2023 12:17:19 10/04/2023 text/html day 5 red painfu l, swollen left first MTP. No injury or trauma. Has been taking NSAIDs and pain has resolved. WOrried about infection because will be on 2 week cruise without healthcare in 2 days. Sophiefeangie Fischer MD [address] [place] [address], [phone], [facility] 10/04/2023 08:52:33 02/10/2024 text/html reports health i s goodhad a low klein gathering for 'shis wondered why we didn't check lipidswe check these annuallychange to valsartan from lisinopril seems to be working wellthe cough has gone awaydenies cp, sob, palpitations, fatigue, dizzy/lightheaded, swelling, hahe is keeping up with regular exercise routine, no changeshe is eating healthy as usualhe [place] been working w him for two monthshelping him understand a bit more about how he thinks and how his brain worksAnthony had a difficult childhood, his parents were alcoholiche finds that the counselors education is helping with more insights Genesis Alexandre MD [address] [place] [address], [phone], [facility] 02/10/2024 10:35:26 05/17/2024 text/html here today to di scuss advanced directives and complete a MOLSThe copied what Genna has on hershe and his have talked about it over timethey recognize that they want to change the forms as life changesBP higher here /72 at cardiology yesterdaygoing to have cardiac MRI after noted hypertrophy on ECHOto r/o other causeshe is aware that he wants to do this, always wants to know more Genesis Alexandre MD [address] [place] [address], [phone], [facility] 05/17/2024 16:11:55
[2024-06-08 13:27] LABS: Anion Gap 11 (12-20); Blood Urea Nitrogen 20 mg/dL (9-16); Calcium 9.1 mg/dL (8.4-10.2); Carbon Dioxide 27 mmol/L (22-29); Chloride 103 mmol/L (96-108); Estimated Glomerular Filt Rate > 60; Glucose Random 97 mg/dL (60-115); Potassium 4.2 mmol/L (3.3-5.1); Sodium 137 mmol/L (135-145)
== END 2024-06-08 09:49 | disposition home or self-care (01) ==
LOC: HO.HMGCLDS 09:48
PROVIDERS: PCP Family Medicine; Visit Provider Internal Medicine Cardiovascular Disease
DX: I42.9 Cardiomyopathy, unspecified (principal); I49.3 Ventricular premature depolarization; R06.02 Shortness of breath
CPT/HCPCS: 36415; 80048